=== PATIENT | female | born 1990 | race Caucasian/White ===

== ENCOUNTER 2016-03-25 23:20 | Emergency (ER) | payer OTHER ==
[~2016-03-25] VITALS: Ht 177.8 cm; Wt 117.9 kg
[~2016-03-25 23:20] MED LIST: FERR325T58 PO; PNV1TABL25 PO; PROM118S2 PO
[2016-03-25 23:46] LABS: NEG OBC UR NEG; POS OBC UR POS
[2016-03-25 23:49] LABS: BILIRUBIN,URINE NEGATIVE (NEG); GLUCOSE,URINE NEGATIVE (NEG); NITRITE,URINE NEGATIVE (NEG); PH,URINE 5.5; PROTEIN,URINE NEGATIVE (NEG-TRACE); UROBILINOGEN,URINE 0.2 mg/dL (0.2 mg/dL)
[2016-03-25 23:51] LABS: BASO # 0.1 x10^3/uL (0.0-0.2); BASO % 1 % (0-3); EOS % 1 % (0-3); HEMATOCRIT 40.3 % (36.0-47.0); HEMOGLOBIN 13.2 g/dL (12.0-15.5); LYMPH # 3.7 x10^3/uL (1.0-4.8); LYMPH % 27 % (24-48); MEAN CORPUSCULAR HEMOGLOBIN 26 pg (25-35); MEAN CORPUSCULAR HGB CONC 33 g/dL (31-37); MEAN CORPUSCULAR VOLUME 80 fL (79-100); MONO % 6 % (0-9); NEUT % 65 % (31-73); PLATELET COUNT 309 x10^3/uL (140-400); RED BLOOD COUNT 5.05 x10^6/uL (3.50-5.40); RED CELL DISTRIBUTION WIDTH 13.8 % (11.5-14.5); WHITE BLOOD COUNT 13.6 x10^3/uL (4.0-11.0)
[2016-03-25] MEDS ORDERED: ONDANSETRON PF 4 MG/2 ML VIAL. IV ONE (23:55)
[2016-03-25] MEDS ORDERED: LIDO:MAALOX:DONNATAL 1:1:1 15 ML SINGLE DOSE SWSW ONE (23:55)
[2016-03-25 23:57] LABS: BACTERIA,URINE MODERATE /HPF (0-FEW); RBC,URINE 0 /HPF (0-2); SQUAMOUS EPITHELIAL CELL,UR FEW /LPF; WBC,URINE 20-40 /HPF (0-4)
[2016-03-26 00:02] LABS: CALCIUM 8.7 mg/dL (8.5-10.1); CREATININE 0.7 mg/dL (0.6-1.0); POTASSIUM 3.6 mmol/L (3.5-5.1)
[2016-03-26 00:08] LABS: ALBUMIN 3.5 g/dL (3.4-5.0); ALBUMIN/GLOBULIN RATIO 0.9 (1.0-1.7); TOTAL BILIRUBIN 0.5 mg/dL (0.2-1.0); TOTAL PROTEIN 7.4 g/dL (6.4-8.2)
[2016-03-26] MEDS ORDERED: CONTRAST GIVEN MC PRN (00:30)
[2016-03-26] MEDS ORDERED: KETOROLAC TROMETHAMINE 30 MG/ML SYRINGE. IV ONE (00:45)
[2016-03-26] MEDS ORDERED: IOHEXOL 300 MG/ML 75 ML VIAL IV ONE (00:45)
[2016-03-26] MEDS ORDERED: CEFTRIAXONE SODIUM 1 GM in IV NORMAL SALINE 50ML 50 ML IV ONE (01:00)
[2016-03-26] MEDS ORDERED: FAMOTIDINE 20 MG/2 ML VIAL IVP ONE (01:00)
[2016-03-26 01:02] VITALS: BP 120/72
--- NOTE | 2016-03-26 01:18 | RAD ---
INDICATION: 26-year-old female with abdominal pain for 1 day. COMPARISON: None TECHNIQUE: Axial CT images obtained through the abdomen and pelvis following the intravenous administration of 75 cc of Omni 300. Coronal and sagittal reformats are provided. One or more of the following individualized dose reduction techniques were utilized for this examination: 1. Automated exposure control; 2. Adjustment of the mA and/or kV according to patient size; 3. Use of iterative reconstruction technique. FINDINGS: Visualized lung bases demonstrate no acute finding. A 5 mm noncalcified nodule is present within the right lower lobe. A 4 mm noncalcified nodules present within the subpleural lateral left lower lobe. The liver, spleen, pancreas, adrenal glands and bilateral kidneys demonstrate no focal abnormality. The gallbladder is surgically absent. No nephrolithiasis or hydronephrosis. The GI tract demonstrates no dilated bowel loops to suggest obstruction. The appendix is air-filled in the right lower quadrant measuring 6-7 mm in diameter. No periappendiceal stranding is present. The urinary bladder demonstrates no focal abnormality. The uterus and bilateral adnexa demonstrate no focal abnormality. No intra-abdominal or pelvic free fluid, free air or significant lymphadenopathy is seen. The aorta is normal in caliber. Visualized osseous structures and overlying soft tissues demonstrate no acute or suspicious finding. IMPRESSION: 1. No acute intra-abdominal or pelvic process seen. Appendix does not appear inflamed. 2. Bilateral sub centimeter pulmonary nodules, recommend follow-up per Fleischner criteria. Electronically signed by: Liyah Arthur (Mar 26, 2016 01:16:17)
[2016-03-26] MEDS ORDERED: NITR100C62 PO (01:29)
--- NOTE | 2016-03-26 01:29 | PHYS DOC ---
Past Medical History Past Medical History: Asthma, Other Additional Past Medical Histor: Ectopic . Past Surgical History: Cholecystectomy, Tonsillectomy, Other Additional Past Surgical Histo: Adnoids. Alcohol Use: None Drug Use: None Adult General Chief Complaint Chief Complaint: ABDOMINAL PAIN HPI HPI 26-year-old female who states she's having significant right upper quadrant pain that is not made worse with any inciting event. She denies that her pain is worse with meals. She does states she's been mildly nauseated as well. Patient does state she has history of her gallbladder being removed but no other significant abdominal surgeries. She denies any vaginal bleeding or discharge. She denies any dysuria or hematuria she denies any significant history of health problems. She currently rates her pain approximately a 7 out of 10 all localized to the right upper quadrant. Review of Systems Review of Systems Constitutional: Denies fever or chills [] Eyes: Denies change in visual acuity, redness, or eye pain [] HENT: Denies nasal congestion or sore throat [] Respiratory: Denies cough or shortness of breath [] Cardiovascular: No additional information not addressed in HPI [] GI: Has abdominal pain, has nausea, denies vomiting, denies bloody stools, denies diarrhea [] : Denies dysuria or hematuria [] Musculoskeletal: Denies back pain or joint pain [] Integument: Denies rash or skin lesions [] Neurologic: Denies headache, focal weakness or sensory changes [] Endocrine: Denies polyuria or polydipsia [] Current Medications Current Medications Current Medications Medications (Trade) Dose Ordered Sig/Elan Start Time Stop Time Status Last Admin Dose Admin Ceftriaxone Sodium 1 gm/ Sodium Chloride 50 ml @ 100 mls/hr Q24H 03/26/16 22:00 03/26/16 22:00 DC Ceftriaxone Sodium/Sodium Chloride (Rocephin/Iv Sodium Chloride 0.9% 50ml) 50 ml @ 100 mls/hr ONCE ONCE 03/26/16 01:00 03/26/16 01:29 DC 03/26/16 01:01 100 MLS/HR Famotidine (Pepcid) 20 mg 1X ONCE 03/26/16 01:00 03/26/16 01:01 DC 03/26/16 00:48 20 MG Info (Do NOT chart on this entry -- for MONITORING) 1 each PRN DAILY PRN 03/26/16 00:30 03/26/16 02:15 DC Iohexol (Omnipaque 300 Mg/ml) 75 ml 1X ONCE 03/26/16 00:45 03/26/16 00:46 DC Ketorolac Tromethamine 30 mg 30 mg 1X ONCE 03/26/16 00:45 03/26/16 00:48 DC 03/26/16 00:47 30 MG Multi-Ingredient Mouthwash/Gargle (Gi Cocktail Single Dose) 15 ml 1X ONCE 03/25/16 23:55 03/25/16 23:56 DC 03/25/16 23:55 15 ML Ondansetron HCl (Zofran) 4 mg 1X ONCE 03/25/16 23:55 03/25/16 23:56 DC 03/25/16 23:55 4 MG Allergies Allergies Allergies Coded Allergies Type Severity Reaction Last Updated Verified No Known Drug Allergies 05/23/13 No Physical Exam Physical Exam Constitutional: Well developed, well nourished, no acute distress, non-toxic appearance. [] HENT: Normocephalic, atraumatic, bilateral external ears normal, oropharynx moist, no oral exudates, nose normal. [] Eyes: PERRLA, EOMI, conjunctiva normal, no discharge. [] Neck: Normal range of motion, no tenderness, supple, no stridor. [] Cardiovascular:Heart rate regular rhythm, no murmur [] Lungs & Thorax: Bilateral breath sounds clear to auscultation [] Abdomen: Bowel sounds normal, soft, moderate RUQ tenderness to palpation, no masses, no pulsatile masses. [] Skin: Warm, dry, no erythema, no rash. [] Back: No tenderness, no CVA tenderness. [] Extremities: No tenderness, no cyanosis, no clubbing, ROM intact, no edema. [] Neurologic: Alert and oriented X 3, normal motor function, normal sensory function, no focal deficits noted. [] Psychologic: Affect normal, judgement normal, mood normal. [] Current Patient Data Vital Signs Vital Signs Date Time Temp Pulse Resp B/P Pulse Ox O2 Delivery O2 Flow Rate FiO2 03/26/16 01:02 79 18 120/72 99 Room Air 03/25/16 23:25 98.4 98.4 Lab Values Laboratory Tests Test 03/25/16 23:20 03/25/16 23:33 Urine Collection Type Unknown Urine Color Yellow Urine Clarity Clear Urine pH 5.5 Urine Specific Alden <=1.005 Urine Protein Negativemg/dL (NEG-TRACE) Urine Glucose (UA) Negativemg/dL (NEG) Urine Ketones (Stick) Negativemg/dL (NEG) Urine Blood Large (NEG) Urine Nitrite Negative (NEG) Urine Bilirubin Negative (NEG) Urine Urobilinogen Dipstick 0.2mg/dL (0.2 mg/dL) Urine Leukocyte Esterase Large (NEG) Urine RBC 0/HPF (0-2) Urine WBC 20-40/HPF (0-4) Urine Squamous Epithelial Cells Few/LPF Urine Bacteria Moderate/HPF (0-FEW) Urine Test Negative (NEG) White Blood Count 13.6x10^3/uL (4.0-11.0) H Red Blood Count 5.05x10^6/uL (3.50-5.40) Hemoglobin 13.2g/dL (12.0-15.5) Hematocrit 40.3% (36.0-47.0) Mean Corpuscular Volume 80fL (79-100) Mean Corpuscular Hemoglobin 26pg (25-35) Mean Corpuscular Hemoglobin Concent 33g/dL (31-37) Red Cell Distribution Width 13.8% (11.5-14.5) Platelet Count 309x10^3/uL (140-400) Neutrophils (%) (Auto) 65% (31-73) Lymphocytes (%) (Auto) 27% (24-48) Monocytes (%) (Auto) 6% (0-9) Eosinophils (%) (Auto) 1% (0-3) Basophils (%) (Auto) 1% (0-3) Neutrophils # (Auto) 8.8x10^3uL (1.8-7.7) H Lymphocytes # (Auto) 3.7x10^3/uL (1.0-4.8) Monocytes # (Auto) 0.8x10^3/uL (0.0-1.1) Eosinophils # (Auto) 0.2x10^3/uL (0.0-0.7) Basophils # (Auto) 0.1x10^3/uL (0.0-0.2) Sodium Level 140mmol/L (136-145) Potassium Level 3.6mmol/L (3.5-5.1) Chloride Level 105mmol/L (98-107) Carbon Dioxide Level 27mmol/L (21-32) Anion Gap 8 (6-14) Blood Urea Nitrogen 12mg/dL (7-20) Creatinine 0.7mg/dL (0.6-1.0) Estimated GFR (Cockcroft-Gault) 102.0 BUN/Creatinine Ratio 17 (6-20) Glucose Level 131mg/dL (70-99) H Calcium Level 8.7mg/dL (8.5-10.1) Total Bilirubin 0.5mg/dL (0.2-1.0) Aspartate Amino Transferase (AST) 10U/L (15-37) L Alanine Aminotransferase (ALT) 19U/L (14-59) Alkaline Phosphatase 54U/L (46-116) Total Protein 7.4g/dL (6.4-8.2) Albumin 3.5g/dL (3.4-5.0) Albumin/Globulin Ratio 0.9 (1.0-1.7) L Lipase 109U/L (73-393) Laboratory Tests 03/25/16 23:33 Laboratory Tests 03/25/16 23:33 EKG EKG [] Radiology/Procedures Radiology/Procedures CT of the abdomen pelvis with IV contrast demonstrated the following: Visualized lung bases demonstrate no acute finding. A 5 mm noncalcified nodule is present within the right lower lobe. A 4 mm noncalcified nodules present within the subpleural lateral left lower lobe. The liver, spleen, pancreas, adrenal glands and bilateral kidneys demonstrate no focal abnormality. The gallbladder is surgically absent. No nephrolithiasis or hydronephrosis. The GI tract demonstrates no dilated bowel loops to suggest obstruction. The appendix is air-filled in the right lower quadrant measuring 6-7 mm in diameter. No periappendiceal stranding is present. The urinary bladder demonstrates no focal abnormality. The uterus and bilateral adnexa demonstrate no focal abnormality. No intra-abdominal or pelvic free fluid, free air or significant lymphadenopathy is seen. The aorta is normal in caliber. Visualized osseous structures and overlying soft tissues demonstrate no acute or suspicious finding. Course & Med Decision Making Course & Med Decision Making Pertinent Labs and Imaging studies reviewed. (See chart for details) This 26-year-old female who's having significant right upper quadrant pain for the last several hours had a negative CT of her abdomen and pelvis for any acute abnormality. Her laboratory workup was unrevealing. Her urinalysis did show signs of infection with large amounts leukocyte esterase and WBCs. I gave her a dose of Rocephin for her UTI and I will be discharging her with a course of Macrobid. She'll follow closely with her primary care doctor in the next several days for her abdominal pain. She was discharged without incident. Dragon Disclaimer Dragon Disclaimer This electronic medical record was generated, in whole or in part, using a voice recognition dictation system. Departure Departure Impression: Primary Impression: Abdominal pain Additional Impressions: Nausea & vomiting Urinary tract infection Disposition: HOME, SELF-CARE Condition: STABLE Referrals: NO PCP (PCP) Patient Instructions: Abdominal Pain, [id number], Urinary Tract Infection, [id number] Additional Instructions: Please follow up with your primary doctor in 2-3 days for your symptoms. Take your antibiotic as prescribed. Return to the ER if you develop any worsening of your symptoms. Scripts Nitrofurantoin Monohyd/M-Cryst (Macrobid 100 Mg Capsule)100 Mg Capsule1 Cap PO BID #10 CAP Prov:KESHAV LOJA DO 03/26/16 Problem Qualifiers KESHAV LOJA DO Mar 26, 2016 01:29
[2016-03-26] MEDS ORDERED: CEFTRIAXONE SODIUM 1 GM in IV NORMAL SALINE 50ML 50 ML IV SCH (22:00)
== END 2016-03-26 01:36 | disposition home or self-care (01) ==
LOC: ER 23:20
DX: N39.0 Urinary tract infection, site not specified (principal); R11.2 Nausea with vomiting, unspecified; J45.909 Unspecified asthma, uncomplicated; Z90.49 Acquired absence of other specified parts of digestive tract
CPT/HCPCS: 36415; 74177; 80053; 81001; 81025; 83690; 85027; 87086; 96365; 96375; 99285; J0696; J1885; J2405; S0028

== ENCOUNTER → 2018-10-31 | Outpatient (CLI) | payer SELFPAY ==
[~2018-10-31] MED LIST changes: +NITR100C62 PO; -PROM118S2 PO; +PROM118S5 PO
--- NOTE | 2018-10-31 11:01 | KCIC ---
Indication: Pelvic pain. TECHNIQUE: Grayscale, color Doppler and spectral waveform images of the pelvis. COMPARISON: None FINDINGS: Anteverted uterus measuring 10.0 x 4.5 x 6.3 cm. Cervix within normal limits. Endometrial stripe measures 4 mm in thickness and is within normal limits. Right ovary measures 2.6 x 3.2 x 2.4 cm and shows blood flow. Left ovary not visualized. No free pelvic fluid. IMPRESSION: 1. Left ovary not visualized due to body habitus and bowel loops. Otherwise unremarkable ultrasound. Electronically signed by: Amado Allen DO (10/31/2018 10:59 AM) [facility]
== END | disposition home or self-care (01) ==
LOC: KCIC US 09:33
PROVIDERS: ATTEND Obstetrics & Gynecology
DX: R10.2 Pelvic and perineal pain (principal)
CPT/HCPCS: 76830; 76856